=== PATIENT | female | born 1995 ===

== ENCOUNTER → 2024-10-22 | Outpatient (CLI) | payer BC ==
[2024-10-22 12:59] LABS: BASOPHILS ABSOLUTE AUTO 0.02 K/mm3 (0.00-0.23); BASOPHILS PERCENT AUTO 0 % (0-2); EOSINOPHILS ABSOLUTE AUTO 0.04 K/mm3 (0.00-0.68); EOSINOPHILS PERCENT AUTO 0 % (0-6); Hematocrit 41.2 % (33.0-51.0); Hemoglobin 14.3 g/dL (11.5-16.0); IMMATURE GRAN ABSOLUTE AUTO 0.02 K/mm3 (0.00-0.10); IMMATURE GRAN PERCENT AUTO 0 % (0-1); LYMPHOCYTES ABSOLUTE AUTO 0.97 K/mm3 (0.84-5.20); LYMPHOCYTES PERCENT AUTO 10 % (21-46); MONOCYTES ABSOLUTE AUTO 0.65 K/mm3 (0.16-1.47); MONOCYTES PERCENT AUTO 7 % (4-13); Mean Corpuscular HGB Conc 34.7 g/dL (31.5-36.5); Mean Corpuscular Volume 94 fL (80-100); NEUTROPHILS ABSOLUTE AUTO 8.13 K/mm3 (1.96-9.15); NEUTROPHILS PERCENT AUTO 83 % (41-73); NRBC ABSOLUTE 0.00 K/mm3 (0.00-0.02); NRBC Auto 0.0 /100 WBC (0.0-0.2); Platelet Count 222 K/mm3 (150-400); RDW Coefficient Variation 12.8 % (11.7-14.2); RDW Standard Deviation 44.3 fL (35.1-46.3)
[2024-10-22 13:03] LABS: Anion Gap 17.0 mmol/L (6-16); Blood Urea Nitrogen 10.0 mg/dL (8-24); CO2, Blood 27.0 mmol/L (21-32); Calcium, Blood 9.6 mg/dL (8.5-10.1); Chloride, Blood 99.0 mmol/L (98-108); Creatinine, Blood 0.64 mg/dL (0.40-1.00); Glucose, Blood 79.0 mg/dL (70-99); Potassium, Blood 3.6 mmol/L (3.5-5.5); Sodium, Blood 139.0 mmol/L (136-145)
== END ==
LOC: LAB SHORT 12:48 → LAB 12:48
PROVIDERS: Family Medicine
DX: N39.0 Urinary tract infection, site not specified (principal)
CPT/HCPCS: 80048; 85025; 87077; 87086; 87186

== ENCOUNTER 2024-10-26 06:08 | Day surgery (SDC) | payer BC ==
[~2024-10-26] VITALS: Ht 167.6 cm; Wt 64.9 kg
[2024-10-26] MEDS ORDERED: AMPDEX10CR PO (06:31)
[2024-10-26] MEDS ORDERED: SERT100 PO (06:31)
[2024-10-26] MEDS ORDERED: TRAZ50 PO (06:31)
[2024-10-26] MEDS ORDERED: Bupivacaine 0.5% W/EPI 1:200000 SDV 30 ML Vial ONE (07:08)
[2024-10-26] MEDS ORDERED: FentaNYL Citrate 50 MCG/ML 2 ML Injection ONE ×2 (07:19→07:55)
[2024-10-26] MEDS ORDERED: Dexamethasone Sod Phos 10 MG/ML 1ML VIAL ONE (07:45)
--- NOTE | 2024-10-26 07:54 | NUR ---
10/26/24 0754 Jcarlos Iverson MALACHI AREA PREPPED BY BOBBI RN WITH CHLORHEXADINE DILUTED 1:1 W/ NS. ABDOMINAL AREA PREPPED BY JULI MARKETING ASSISTANT MANAGER WITH CLORPREP
[2024-10-26] MEDS ORDERED: Sugammadex Sodium 200 MG/2ML SDV (100 MG/ML) ONE (07:58)
[2024-10-26] MEDS ORDERED: Ondansetron HCl 2 MG / ML 2ML Vial ONE (07:59)
[2024-10-26] MEDS ORDERED: Ketorolac Tromethamine 30mg Vial ONE (08:29)
--- NOTE | 2024-10-26 08:34 | NUR ---
10/26/[address] AT BEDSIDE
--- NOTE | 2024-10-26 09:09 | NUR ---
10/26/24 0909 Faiza Marin NOSE PIERCINGS INTACT, 4 EARRINGS INTACT, LOWER BACK PIERCINGS INTACT FROM SURGERY
== END 2024-10-26 09:30 | disposition home or self-care (01) ==
LOC: ORSCSDS 06:08
PROVIDERS: Obstetrics & Gynecology
PROC: 0UB74ZZ Excision of Bilateral Fallopian Tubes, Percutaneous Endoscopic Approach (ICD-10-PCS; principal; 2024-10-26 07:30)
DX: Z30.2 Encounter for sterilization (principal); F90.9 Attention-deficit hyperactivity disorder, unspecified type; Z79.899 Other long term (current) drug therapy
CPT/HCPCS: 88302; J1100; J1885; J2405; J2704; J3010

== ENCOUNTER → 2025-04-15 | Outpatient (CLI) | payer BC ==
[~2025-04-15] MED LIST: AMPDEX10CR PO; SERT100 PO; TRAZ50 PO
[2025-04-15 19:38] LABS: Bacterial Vaginosis PCR Negative (NEGATIVE); Candida Group, PCR NOT DETECTED (NOT DETECT); Candida glabrata-krusei, PCR NOT DETECTED (NOT DETECT)
[2025-04-15 20:08] LABS: Neisseria Gonorrhoea Urine NOT DETECTED (NOT DETECT)
[2025-04-15 20:14] LABS: Chlamydia Trachomatis Urine DETECTED (NOT DETECT)
== END ==
LOC: LAB SHORT 16:11 → LAB 16:11
PROVIDERS: Family Medicine
DX: N89.8 Other specified noninflammatory disorders of vagina (principal)
CPT/HCPCS: 81515; 87491; 87591